=== PATIENT | male | born 1940 | race Caucasian/White ===

== ENCOUNTER 2020-09-26 21:58 | Inpatient (IN) | payer OTHER ==
[2020-09-26 22:48] LABS: BASO % 0.5 % (0-2.0); EOS % 0.5 % (0-4.5); HEMATOCRIT 39.2 % (35.4-49); HEMOGLOBIN 13.7 GM/dL (11.7-16.9); LYMPH % 28.1 % (8-40); MCH 31.9 pg (25.7-33.7); MCHC 34.8 g/dl (32.0-35.9); MEAN CELL VOLUME 91.7 fl (80-96); MEAN PLT VOLUME 6.9 fl (7.5-11.1); MONO % 7.7 % (3.8-10.2); NEUT % 63.2 % (42.8-82.8); PLATELET COUNT 184 K/MM3 (134-434); RBC 4.28 M/mm3 (4.00-5.60); RDW 15.9 % (11.9-15.9); WHITE BLOOD COUNT 7.2 K/mm3 (4.0-10.0)
[2020-09-26 22:56] LABS: PROTHROMBIN TIME (PATIENT) 12.1 SEC (9.7-13.0)
[2020-09-26 22:59] LABS: ACTIVATED PTT 35.6 SECONDS (25.2-36.5)
[2020-09-26 23:15] LABS: CHLORIDE 103 mmol/L (98-107); SODIUM 135 mmol/L (136-145)
[2020-09-26 23:18] LABS: ALBUMIN 4.2 g/dl (3.4-5.0); BLOOD UREA NITROGEN 19.8 mg/dL (7-18); CALCIUM 8.7 mg/dL (8.5-10.1); CO2 30 mmol/L (21-32); GLUCOSE,RANDOM 99 mg/dL (74-106)
[2020-09-26 23:21] LABS: CHOLESTEROL 184 mg/dL (50-200); CREATININE 1.1 mg/dL (0.55-1.3); SGOT/AST 67 U/L (15-37)
[2020-09-26 23:22] LABS: BILIRUBIN,TOTAL 0.3 mg/dL (0.2-1); LDL CHOLESTEROL (ONLY SJRH) 85 mg/dL (5-100); TOT PROT 8.4 g/dl (6.4-8.2); TRIGLYCERIDES 110 mg/dL (0-150)
[2020-09-26 23:23] LABS: HDL CHOLESTEROL 85 mg/dL (40-60)
[2020-09-26 23:24] LABS: ALK PHOS 153 U/L (45-117)
[2020-09-26] MEDS ORDERED: SODIUM CHLORIDE 1,000 ML IV STA (23:26)
[2020-09-26 23:32] LABS: ANION GAP 2 MMOL/L (8-16); SGPT/ALT 30 U/L (13-61)
[2020-09-27 00:18] LABS: CALCIUM 7.7 mg/dL (8.5-10.1)
[2020-09-27 00:19] LABS: BLOOD UREA NITROGEN 18.9 mg/dL (7-18)
[2020-09-27 00:22] LABS: CREATININE 0.8 mg/dL (0.55-1.3)
[2020-09-27 02:20] LABS: PH,URINE 6.5 (5.0-8.0); URINE APPEARANCE CLEAR; URINE BILIRUBIN NEGATIVE (NEGATIVE); URINE COLOR YELLOW; URINE GLUCOSE (UA) NEGATIVE (NEGATIVE); URINE KETONE NEGATIVE (NEGATIVE); URINE LEUK ESTERASE NEGATIVE (NEGATIVE); URINE NITRITE NEGATIVE (NEGATIVE); URINE PROTEIN NEGATIVE (NEGATIVE); URINE UROBILINOGEN 0.2 mg/dL (0.2-1.0)
[2020-09-27 03:27] VITALS: BMI 26.6
[2020-09-27] MEDS ORDERED: LEVOTHYROXINE NA 100 MCG TABLET (FP) PO SCH (07:00)
[2020-09-27] MEDS ORDERED: TAMSULOSIN HCL 0.4 MG CAP PO SCH (08:30)
[2020-09-27] MEDS ORDERED: levETIRAcetam 250 MG TABLET PO SCH (10:00)
[2020-09-27] MEDS ORDERED: THIAMINE HCL 100 MG TABLET (FP) PO SCH (10:00)
[2020-09-27] MEDS ORDERED: FOLIC ACID 1 MG TABLET (FP) PO SCH (10:00)
[2020-09-27] MEDS ORDERED: predniSONE 5 MG TABLET (UD) PO SCH (10:00)
[2020-09-27 10:25] LABS: ALBUMIN 3.4 g/dl (3.4-5.0); BLOOD UREA NITROGEN 14.2 mg/dL (7-18); CALCIUM 8.4 mg/dL (8.5-10.1)
[2020-09-27 10:28] LABS: CREATININE 0.8 mg/dL (0.55-1.3)
[2020-09-27 10:29] LABS: BASO % 0.5 % (0-2.0); EOS % 0.9 % (0-4.5); HEMATOCRIT 35.7 % (35.4-49); HEMOGLOBIN 12.5 GM/dL (11.7-16.9); MCH 32.4 pg (25.7-33.7); MCHC 35.1 g/dl (32.0-35.9); MEAN CELL VOLUME 92.2 fl (80-96); NEUT % 52.6 % (42.8-82.8); PLATELET COUNT 165 K/MM3 (134-434); RBC 3.87 M/mm3 (4.00-5.60); RDW 16.2 % (11.9-15.9)
[2020-09-27 10:30] LABS: BILIRUBIN,TOTAL 0.3 mg/dL (0.2-1)
[2020-09-27 10:39] LABS: TOT PROT 6.3 g/dl (6.4-8.2)
[2020-09-27] MEDS ORDERED: PT OWN MED DRAWER 7, Y5N ONE (10:40)
[2020-09-27 11:28] LABS: PLATELET ESTIMATE NORMAL
[2020-09-27 15:13] VITALS: BP 155/74; PULSE 65; TEMP 98.4
[2020-09-27] MEDS ORDERED: ROSUVASTATIN CA 20 MG TABLET (FP) PO SCH (22:00)
[2020-09-27] MEDS ORDERED: SENNOSIDES 8.6MG TABLET (FP) PO SCH (22:00)
== END 2020-09-27 17:11 | DRG 918 ==
LOC: JER 21:58 → JERBED 09-27 00:37 → J4W 09-27 04:25
PROVIDERS: ADMIT Internal Medicine; ATTEND Family Medicine
DX: T42.0X1A Poisoning by hydantoin derivatives, accidental (unintentional), initial encounter (principal); R47.01 Aphasia; R13.10 Dysphagia, unspecified; G40.909 Epilepsy, unspecified, not intractable, without status epilepticus; S00.03XA Contusion of scalp, initial encounter; I48.91 Unspecified atrial fibrillation; E78.5 Hyperlipidemia, unspecified; Z86.718 Personal history of other venous thrombosis and embolism; I10 Essential (primary) hypertension; N40.0 Benign prostatic hyperplasia without lower urinary tract symptoms; F03.90 Unspecified dementia, unspecified severity, without behavioral disturbance, psychotic disturbance, mood disturbance, and anxiety; Y92.129 Unspecified place in nursing home as the place of occurrence of the external cause; Z20.822 Contact with and (suspected) exposure to COVID-19; W19.XXXA Unspecified fall, initial encounter; Y93.89 Activity, other specified; Y99.8 Other external cause status
CPT/HCPCS: 36415; 70450-TC; 71045-TC-FY; 72125-TC; 80048; 80053; 80061; 80177; 80185; 81003; 82272; 82550; 82553; 83721; 83735; 84443; 84484; 85025; 85610; 85730; 93005; 93010; 99285-25; C9803; U0003; U0005

== ENCOUNTER 2022-02-12 11:40 | Emergency (ER) | payer OTHER ==
[2022-02-12 11:59] VITALS: BMI 25.0
[2022-02-12 16:45] VITALS: BP 135/75; PULSE 83; RESP 16; TEMP 98.2
== END 2022-02-12 16:45 ==
LOC: JER 11:40
PROC: 0HQ0XZZ Repair Scalp Skin, External Approach (ICD-10-PCS; principal; 2022-02-12)
DX: S01.81XA Laceration without foreign body of other part of head, initial encounter (principal); W01.0XXA Fall on same level from slipping, tripping and stumbling without subsequent striking against object, initial encounter
CPT/HCPCS: 70450-TC; 71045-TC-FY; 72125-TC; 72170-TC-FY; 73562-TC-LT-FY; 93005; 93010; 99285-25

== ENCOUNTER 2023-01-26 22:26 | Inpatient (IN) | payer OTHER ==
[2023-01-27 00:24] LABS: BASO % 0.8 % (0-2.0); EOS % 3.8 % (0-4.5); HEMATOCRIT 43.7 % (35.4-49); LYMPH % 24.9 % (8-40); MCH 29.4 pg (25.7-33.7); MCHC 34.5 g/dl (32.0-35.9); MEAN CELL VOLUME 85.2 fl (80-96); MEAN PLT VOLUME 7.2 fl (7.5-11.1); MONO % 12.5 % (3.8-10.2); PLATELET COUNT 214 10^3/uL (134-434); RBC 5.12 M/mm3 (4.00-5.60); RDW 15.7 % (11.9-15.9)
[2023-01-27 00:42] LABS: POTASSIUM 3.1 mmol/L (3.5-5.1)
[2023-01-27 00:44] LABS: CALCIUM 9.8 mg/dL (8.5-10.1)
[2023-01-27 00:45] LABS: BLOOD UREA NITROGEN 16.9 mg/dL (7-18); MAGNESIUM 1.8 mg/dL (1.8-2.4)
[2023-01-27 00:48] LABS: CREATININE 1.4 mg/dL (0.55-1.3); PHOSPHOROUS 3.3 mg/dL (2.5-4.9)
[2023-01-27] MEDS ORDERED: POTASSIUM CHLORIDE TABS 20 MEQ TABLET.ER (FP) PO ONE (00:48)
[2023-01-27 00:49] LABS: BILIRUBIN,TOTAL 0.8 mg/dL (0.2-1)
[2023-01-27 00:50] LABS: TOT PROT 7.5 g/dl (6.4-8.2)
[2023-01-27] MEDS ORDERED: VANCOMYCIN 1,000 MG in DEXTROSE 5%-WATER - 250 ML IVPB ONE (01:40)
[2023-01-27] MEDS ORDERED: CEFEPIME HCL 1 GM VIAL (RESTRICTED TO ID) IVPB ONE (01:41)
[2023-01-27] MEDS ORDERED: POTASSIUM CHLORIDE ORAL LIQUID 20 MEQ/15 ML ONE (01:46)
[2023-01-27] MEDS ORDERED: VANCOMYCIN 1 GRAM (PRE-DOCKED) 1,000 MG/250 ML BAG IVPB ONE (01:47)
[2023-01-27] MEDS ORDERED: CEFEPIME 1 GM/100 ML BAG IVPB ONE (01:48)
[2023-01-27 01:55] LABS: PH,URINE 6.5 (5.0-8.0); URINE APPEARANCE CLEAR; URINE BILIRUBIN NEGATIVE (NEGATIVE); URINE COLOR YELLOW; URINE GLUCOSE (UA) NEGATIVE (NEGATIVE); URINE KETONE NEGATIVE (NEGATIVE); URINE LEUK ESTERASE NEGATIVE (NEGATIVE); URINE NITRITE NEGATIVE (NEGATIVE); URINE PROTEIN TRACE (NEGATIVE)
[2023-01-27 06:50] LABS: BASO % 1.1 % (0-2.0); EOS % 3.8 % (0-4.5); HEMATOCRIT 43.4 % (35.4-49); HEMOGLOBIN 14.5 GM/dL (11.7-16.9); MCH 29.1 pg (25.7-33.7); MCHC 33.5 g/dl (32.0-35.9); MEAN CELL VOLUME 86.8 fl (80-96); MEAN PLT VOLUME 7.6 fl (7.5-11.1); MONO % 15.7 % (3.8-10.2); NEUT % 50.4 % (42.8-82.8); PLATELET COUNT 197 10^3/uL (134-434); RDW 15.4 % (11.9-15.9); WHITE BLOOD COUNT 5.7 K/mm3 (4.0-10.0)
[2023-01-27 07:00] LABS: POTASSIUM 3.6 mmol/L (3.5-5.1)
[2023-01-27 07:06] LABS: CREATININE 1.2 mg/dL (0.55-1.3)
[2023-01-27] MEDS: LEVOTHYROXINE NA 50 MCG TABLET (FP) PO SCH ×2 (08:33→11:02)
[2023-01-27] MEDS ORDERED: PIPERACILLIN/TAZOB 4.5 GM 4.5 GM in DEXTROSE 5%-WATER 100 ML IVPB SCH (09:00)
[2023-01-27] MEDS: TAMSULOSIN HCL 0.4 MG CAP PO SCH (10:59)
[2023-01-27] MEDS: predniSONE 5 MG TABLET (UD) PO SCH (10:59)
[2023-01-27] MEDS: CEFTRIAXONE 2 GM in DEXTROSE 5%-WATER 100 ML IVPB SCH (14:46)
[2023-01-27] MEDS: levETIRAcetam 250 MG TABLET PO SCH ×2 (16:09→21:45)
[2023-01-27 16:17] VITALS: BMI 27.9
[2023-01-27] MEDS: ROSUVASTATIN CA 20 MG TABLET PO SCH (21:45)
[2023-01-27] MEDS: PHENYTOIN NA EXTENDED 100 MG CAPSULE (FP) PO SCH (21:45)
[2023-01-27] MEDS: SENNOSIDES 8.6MG TABLET (FP) PO SCH (21:45)
[2023-01-28] MEDS ORDERED: VANCOMYCIN 750 MG in DEXTROSE 5%-WATER - 150 ML IVPB SCH (02:00)
[2023-01-28] MEDS ORDERED: VANCOMYCIN/WATER FOR INJ (PEG) 750 MG/150 ML BAG IVPB SCH (02:00)
[2023-01-28] MEDS: LEVOTHYROXINE NA 50 MCG TABLET (FP) PO SCH (06:19)
[2023-01-28] MEDS: TAMSULOSIN HCL 0.4 MG CAP PO SCH (09:36)
[2023-01-28] MEDS: predniSONE 5 MG TABLET (UD) PO SCH (09:36)
[2023-01-28] MEDS: PHENYTOIN NA EXTENDED 100 MG CAPSULE (FP) PO SCH ×2 (09:37→21:02)
[2023-01-28] MEDS: levETIRAcetam 250 MG TABLET PO SCH ×2 (09:37→21:01)
[2023-01-28] MEDS: CEFTRIAXONE 2 GM in DEXTROSE 5%-WATER 100 ML IVPB SCH (09:38)
[2023-01-28] MEDS ORDERED: LEVOTHYROXINE NA 50 MCG TABLET (FP) PO SCH (14:18)
[2023-01-28] MEDS ORDERED: LEVOTHYROXINE NA 25 MCG TABLET (FP) PO SCH (14:19)
[2023-01-28] MEDS: SENNOSIDES 8.6MG TABLET (FP) PO SCH (21:02)
[2023-01-28] MEDS: ROSUVASTATIN CA 20 MG TABLET PO SCH (21:02)
[2023-01-29] MEDS ORDERED: PHENYTOIN 50 MG TAB.CHEW PO SCH (09:15)
[2023-01-29] MEDS: LISINOPRIL 5 MG TABLET PO SCH (09:52)
[2023-01-29] MEDS: TAMSULOSIN HCL 0.4 MG CAP PO SCH (09:52)
[2023-01-29] MEDS: CEFTRIAXONE 2 GM in DEXTROSE 5%-WATER 100 ML IVPB SCH (09:53)
[2023-01-29] MEDS: levETIRAcetam 250 MG TABLET PO SCH ×2 (09:53→21:16)
[2023-01-29] MEDS: PHENYTOIN NA EXTENDED 100 MG CAPSULE (FP) PO SCH ×2 (09:53→22:42)
[2023-01-29] MEDS: predniSONE 5 MG TABLET (UD) PO SCH (09:53)
[2023-01-29] MEDS: ROSUVASTATIN CA 20 MG TABLET PO SCH (21:16)
[2023-01-29] MEDS: SENNOSIDES 8.6MG TABLET (FP) PO SCH (21:16)
[2023-01-30] MEDS: LEVOTHYROXINE NA 75 MCG TABLET (FP) PO SCH (06:03)
[2023-01-30] MEDS: CEFTRIAXONE 2 GM in DEXTROSE 5%-WATER 100 ML IVPB SCH (09:13)
[2023-01-30] MEDS: LISINOPRIL 5 MG TABLET PO SCH (09:14)
[2023-01-30] MEDS: predniSONE 5 MG TABLET (UD) PO SCH (09:14)
[2023-01-30] MEDS: PHENYTOIN NA EXTENDED 100 MG CAPSULE (FP) PO SCH ×2 (09:14→21:36)
[2023-01-30] MEDS: TAMSULOSIN HCL 0.4 MG CAP PO SCH (09:14)
[2023-01-30] MEDS: levETIRAcetam 250 MG TABLET PO SCH ×2 (09:15→21:37)
[2023-01-30 15:59] LABS: POTASSIUM 3.9 mmol/L (3.5-5.1)
[2023-01-30 16:01] LABS: BLOOD UREA NITROGEN 15.3 mg/dL (7-18)
[2023-01-30 16:04] LABS: CREATININE 1.1 mg/dL (0.55-1.3)
[2023-01-30] MEDS ORDERED: LISINOPRIL 5 MG TABLET PO ONE (21:24)
[2023-01-30] MEDS: ROSUVASTATIN CA 20 MG TABLET PO SCH (21:36)
[2023-01-30] MEDS: SENNOSIDES 8.6MG TABLET (FP) PO SCH (21:36)
[2023-01-31] MEDS: LEVOTHYROXINE NA 75 MCG TABLET (FP) PO SCH (06:09)
[2023-01-31 06:32] VITALS: TEMP 97.6
[2023-01-31 08:47] VITALS: RESP 16
[2023-01-31] MEDS: predniSONE 5 MG TABLET (UD) PO SCH (09:06)
[2023-01-31] MEDS: LISINOPRIL 5 MG TABLET PO SCH (09:06)
[2023-01-31] MEDS: TAMSULOSIN HCL 0.4 MG CAP PO SCH (09:06)
[2023-01-31] MEDS: levETIRAcetam 250 MG TABLET PO SCH (09:07)
[2023-01-31] MEDS: PHENYTOIN NA EXTENDED 100 MG CAPSULE (FP) PO SCH (09:07)
[2023-01-31 12:10] VITALS: BP 142/85; PULSE 62
== END 2023-01-31 11:00 | DRG 100 ==
LOC: JER 22:26 → JERBED 01-27 03:02 → J2W 01-27 08:51 → OBSVTOIN 01-29 13:58
PROVIDERS: ADMIT Internal Medicine; ATTEND Family Medicine
DX: R56.9 Unspecified convulsions (principal); J18.9 Pneumonia, unspecified organism; E23.0 Hypopituitarism; J98.11 Atelectasis; E03.9 Hypothyroidism, unspecified; F03.90 Unspecified dementia, unspecified severity, without behavioral disturbance, psychotic disturbance, mood disturbance, and anxiety; I10 Essential (primary) hypertension; I69.320 Aphasia following cerebral infarction; I48.91 Unspecified atrial fibrillation; I25.10 Atherosclerotic heart disease of native coronary artery without angina pectoris; E78.5 Hyperlipidemia, unspecified; N40.0 Benign prostatic hyperplasia without lower urinary tract symptoms; R55 Syncope and collapse
CPT/HCPCS: 0241U-QW; 36415; 70450-TC; 71045-TC-FY; 72125-TC; 72128-TC; 72131-TC; 80048; 80053; 80177; 80185; 81003; 83735; 84100; 84436; 84443; 84484; 85025; 87040; 87086; 93005; 93010; 97116-GP; 97162-GP; 99285-25; G0378